=== PATIENT | female | born 1940 | race Two or more races ===

== ENCOUNTER 2025-04-19 07:45 | Inpatient (IN) | payer OTHER ==
[~2025-04-19] VITALS: Ht 152.4 cm; Wt 65.8 kg
[2025-04-19] MEDS ORDERED: LEVO-T50 MCG PO (08:22)
[2025-04-19] MEDS ORDERED: ATACAND32 MG PO (08:22)
[2025-04-19] MEDS ORDERED: GLIMEPIRIDE4 MG (08:23)
[2025-04-19] MEDS ORDERED: SERTRALINE HCL25 MG PO (08:23)
[2025-04-19] MEDS ORDERED: MEMANTINE HCL5 MG PO (08:24)
[2025-04-19] MEDS ORDERED: ACTIDOGESIC-DF1 EACH PO (08:24)
[2025-04-19] MEDS ORDERED: LANTUS SOL100 UNIT/1 (08:25)
[2025-04-19 08:54] VITALS: BP 160/72
[2025-04-19 09:05] LABS: URINE APPEARANCE Clear; URINE BILIRRUBIN Negative (NEGATIVE); URINE BLOOD Negative; URINE COLOR Yellow; URINE GLUCOSE Negative (NEGATIVE); URINE KETONE Trace (NEGATIVE); URINE LEUKOCYTE Trace; URINE NITRATE Negative; URINE PROTEIN Trace (NEGATIVE); URINE UROBILINOGEN 0.2 E.U./dl
[2025-04-19 09:10] LABS: URINE BACTERIA 6495.2 uL (0.0-1933); URINE EPITHELIAL CELLS 69.5 uL (0.0-38.8); URINE RBC 10.8 uL (0.0-20.8); URINE WBC 52.1 uL (0.0-23.2)
[2025-04-19 09:12] LABS: BASO % 0.7 % (0.1-1.2); EOS # 0.15 (0.04-0.54); EOS % 2.5 % (0.7-7.0); LYMPH # 2.17 (1.18-3.74); LYMPH % 36.2 % (19.3-53.1); MEAN PLATELET VOLUME 10.20 fl (9.4-12.4); MONO # 0.42 (0.24-0.82); MONO % 7.0 % (4.7-12.5); NEUT # 3.20 (1.56-6.13); NEUT % 53.3 % (34.0-71.1); RED CELL DISTRIBUTION WIDTH 12.8 % (11.6-14.4)
[2025-04-19 09:34] LABS: URINE CAST 0.73 uL (0.0-1.40)
[2025-04-19 09:40] LABS: INR 0.98
[2025-04-19 09:47] LABS: ALT/SGPT 21.0 U/L (12-78); AST/SGOT 13.0 U/L (15-37); BILIRUBIN TOTAL 0.41 mg/dL (0.3-1.2); BUN CREA RATIO 20.0 (7.0-25.0); CREATININE SERUM 1.24 mg/dL (0.55-1.02); GFR 41.41; GLOBULINA 3.0 G/DL (2.4-3.5); GLUCOSE FASTING 67.0 mg/dL (65-100); HDL 66.0 mg/dl (40-60); OSMOLALITY SERUM 288.0 MOSM/KG (275-295); VLDL 71.0 (0-39)
[2025-04-19 09:48] LABS: CHOL HDL RATIO 4.9 (0-5.0); LDL 187.0 mg/dl (0-130)
[2025-04-19 10:11] LABS: COVID-19 AG NEGATIVE (NEGATIVE)
[2025-04-19 10:21] LABS: RH POSITIVE
[2025-04-19 15:06] VITALS: BP 149/80
[2025-04-26] MEDS ORDERED: LIDOCAINE HCL 1%/EPINEPHRINE 20ML VIAL IJ ONE (07:00)
[2025-04-26] MEDS ORDERED: VANCOMYCIN HCL 1,000 MG VIAL IR ONE (07:00)
[2025-04-26] MEDS ORDERED: TRANEXAMIC ACID 100MG/1ML (1000MG) AMPUL IV ONE ×2 (07:00)
[2025-04-26] MEDS ORDERED: ISOPROPYL ALCOHOL 30 ML OUNCE TOP ONE (07:00)
[2025-04-26] MEDS ORDERED: BUPIVACAINE HCL 30 ML VIAL IJ ONE (07:00)
[2025-04-26] MEDS ORDERED: KETOROLAC TROMETHAMINE 60 MG VIAL IM ONE (07:00)
[2025-04-26] MEDS ORDERED: MORPHINE SULFATE 4 MG/ML CARTRIDGE IV ONE (07:00)
[2025-04-26] MEDS ORDERED: VANCOMYCIN HCL 1,000 MG VIAL IV ONE (07:30)
[2025-04-26] MEDS ORDERED: SODIUM CHLORIDE 0.45 % 1,000 ML IV SCH (10:45)
[2025-04-26] MEDS ORDERED: OxyCODONE HCL 5 MG TABLET (ROXICODONE) PO PRN (10:45)
[2025-04-26] MEDS ORDERED: MORPHINE SULFATE 4 MG/ML CARTRIDGE IV PRN (10:45)
[2025-04-26] MEDS ORDERED: ONDANSETRON HCL 2 MG/ML VIAL IV PRN (10:45)
[2025-04-26] MEDS ORDERED: ACETAMINOPHEN 500 MG GEL..CAP PO SCH (12:00)
[2025-04-26] MEDS ORDERED: DEXTROSE 50 % IN WATER 0.5 G/ML VIAL IV PRN (13:45)
[2025-04-26] MEDS ORDERED: ENALAPRILAT DIHYDRATE 2.5 MG/2 ML VIAL IV PRN (13:45)
[2025-04-26] MEDS ORDERED: INSULIN LISPRO 1,000 UNIT/10 ML UNITS SUBCUTANEO PRN (13:45)
[2025-04-26] MEDS ORDERED: MORPHINE SULFATE 4 MG/ML VIAL IV ONE (14:00)
[2025-04-26 16:00] VITALS: BP 115/73; O2SAT 99
[2025-04-26] MEDS ORDERED: GABAPENTIN 300 MG CAPSULE PO SCH (17:00)
[2025-04-26] MEDS ORDERED: MEMANTINE HCL 10 MG TABLET PO SCH (17:00)
[2025-04-26 21:00] VITALS: BP 149/80
[2025-04-26] MEDS ORDERED: VANCOMYCIN HCL 1,000 MG in 0.9 % SODIUM CHLORIDE 250 ML IV SCH (21:00)
[2025-04-26] MEDS ORDERED: VANCOMYCIN HCL 1,000 MG VIAL IV SCH (21:00)
[2025-04-27] VITALS: BP 125/56
[2025-04-27] LABS: BUN CREA RATIO 15.0 (7.0-25.0); GFR 46.1; GLUCOSE FASTING 104.0 mg/dL (65-100); OSMOLALITY SERUM 285.0 MOSM/KG (275-295)
[2025-04-27 00:02] LABS: CREATININE SERUM 1.13 mg/dL (0.55-1.02)
[2025-04-27] MEDS ORDERED: LEVOTHYROXINE SODIUM 50 MCG TABLET PO SCH (06:00)
[2025-04-27 08:36] LABS: BASO % 0.6 % (0.1-1.2); EOS # 0.21 (0.04-0.54); EOS % 3.9 % (0.7-7.0); LYMPH # 1.26 (1.18-3.74); LYMPH % 23.5 % (19.3-53.1); MEAN PLATELET VOLUME 10.70 fl (9.4-12.4); MONO # 0.51 (0.24-0.82); MONO % 9.5 % (4.7-12.5); NEUT # 3.33 (1.56-6.13); NEUT % 62.1 % (34.0-71.1); RED CELL DISTRIBUTION WIDTH 13.1 % (11.6-14.4)
[2025-04-27 08:48] VITALS: BP 138/68
[2025-04-27] MEDS ORDERED: APIXABAN 2.5 MG TABLET PO SCH (09:00)
[2025-04-27] MEDS ORDERED: CANDESARTAN CILEXETIL 32 MG TABLET PO SCH (09:00)
[2025-04-27] MEDS ORDERED: SERTRALINE HCL 25 MG TABLET PO SCH (09:00)
[2025-04-27] MEDS ORDERED: SENNOSIDES 1 TAB TABLET PO SCH (09:00)
[2025-04-27] MEDS ORDERED: CIPRO500 MG PO (09:37)
[2025-04-27] MEDS ORDERED: PERCOCET 5-3251 EACH PO (09:37)
[2025-04-27] MEDS ORDERED: ELIQUIS2.5 MG PO (09:37)
[2025-04-27 12:48] LABS: COVID-19 AG NEGATIVE (NEGATIVE)
[2025-04-27 13:06] LABS: ALT/SGPT 29.0 U/L (12-78); AST/SGOT 34.0 U/L (15-37); BILIRUBIN TOTAL 0.91 mg/dL (0.3-1.2); BUN CREA RATIO 14.0 (7.0-25.0); CREATININE SERUM 1.13 mg/dL (0.55-1.02); GFR 46.1; GLOBULINA 3.2 G/DL (2.4-3.5); GLUCOSE FASTING 173.0 mg/dL (65-100); OSMOLALITY SERUM 283.0 MOSM/KG (275-295)
[2025-04-27] MEDS ORDERED: ENALAPRILAT DIHYDRATE 1.25 MG/ML VIAL IV PRN (17:39)
[2025-04-28] MEDS ORDERED: IRON FUM,PS/FOLIC ACID/VITC/B3 1 CAP CAPSULE PO SCH (09:00)
== END 2025-04-27 20:21 | DRG 470 ==
LOC: OB/GYN 04-26 05:53 → O/R 04-26 05:53 → SURH 04-26 07:00 → SURG 04-26 15:46 → OB/GYN 04-26 18:37
PROVIDERS: ADMIT Orthopaedic Surgery; ATTEND Orthopaedic Surgery
PROC: 0MNP0ZZ Release Left Knee Bursa and Ligament, Open Approach (ICD-10-PCS; 2025-04-26)
PROC: 0QUF0KZ Supplement Left Patella with Nonautologous Tissue Substitute, Open Approach (ICD-10-PCS; 2025-04-26)
PROC: 0QUF0JZ Supplement Left Patella with Synthetic Substitute, Open Approach (ICD-10-PCS; 2025-04-26)
PROC: 0SRD0JZ Replacement of Left Knee Joint with Synthetic Substitute, Open Approach (ICD-10-PCS; principal; 2025-04-26 07:00)
DX: M17.12 Unilateral primary osteoarthritis, left knee (principal); I10 Essential (primary) hypertension; E07.9 Disorder of thyroid, unspecified; G30.0 Alzheimer's disease with early onset; F02.80 Dementia in other diseases classified elsewhere, unspecified severity, without behavioral disturbance, psychotic disturbance, mood disturbance, and anxiety; E11.9 Type 2 diabetes mellitus without complications; Z96.652 Presence of left artificial knee joint; M81.0 Age-related osteoporosis without current pathological fracture